=== PATIENT | male | born 1995 | race Two or more races ===

== ENCOUNTER 2024-10-08 19:04 | Emergency (ER) | payer SELFPAY ==
[~2024-10-08] VITALS: Ht 172.7 cm; Wt 90.0 kg
[2024-10-08] MEDS ORDERED: LIDOCAINE 1% HCL (LOCAL ANESTH.) INJ 20ML MDV ID ONE (19:30)
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
[2024-10-08 21:03] VITALS: BP 125/95; PULSE 120; RESP 18; TEMP 98.1; O2SAT 100
== END 2024-10-08 21:06 | disposition home or self-care (01) ==
LOC: ER 19:04
DX: S01.511A Laceration without foreign body of lip, initial encounter (principal); S01.81XA Laceration without foreign body of other part of head, initial encounter; M79.601 Pain in right arm; V89.2XXA Person injured in unspecified motor-vehicle accident, traffic, initial encounter; Y93.I9 Activity, other involving external motion; Y92.488 Other paved roadways as the place of occurrence of the external cause; Y99.8 Other external cause status
CPT/HCPCS: 12011; 70486